=== PATIENT | male | born 1970 | race Hispanic/Latino ===

== ENCOUNTER 2017-11-02 19:47 | Emergency (ER) | payer OTHER ==
[2017-11-02 20:29] LABS: BASOPHILS % (AUTO) 0.6 % (0.0-5.0); EOSINOPHILS % (AUTO) 1.6 % (0.0-8.0); HEMATOCRIT 44.4 % (42-54); LYMPHOCYTES % (AUTO) 19.1 % (21.0-51.0); MEAN CORPUSCULAR HEMOGLOBIN 30.8 pg (27.0-33.0); MEAN CORPUSCULAR VOLUME 90.7 fL (79-99); MONOCYTES % (AUTO) 7.5 % (3.0-13.0); NEUTROPHILS % (AUTO) 71.2 % (40.0-77.0); PLATELET COUNT (AUTO) 309 K/uL (130-400); RED CELL DISTRIBUTION WIDTH 13.9 % (11.0-15.5); WHITE BLOOD COUNT (AUTO) 6.7 K/uL (4.8-10.8)
[2017-11-02 20:36] LABS: CREATININE 1.2 mg/dL (0.5-1.5); POTASSIUM 4.1 mmol/L (3.5-5.1)
[2017-11-02 20:50] LABS: ALBUMIN 3.9 g/dL (3.5-5.0); BILIRUBIN,TOTAL 0.3 mg/dL (0.2-1.0); CREATINE KINASE MB 0.7 ng/mL (0.5-3.6); THYROID STIMULATING HORMONE 4.05 uIU/mL (0.36-3.74); TOTAL PROTEIN, SERUM 7.9 g/dL (6.0-8.3)
[2017-11-02] MEDS ORDERED: LEVOTHYROXINE 25 MCG TABLET ONE (21:12)
[2017-11-02] MEDS ORDERED: KETOROLAC TROMETHAMINE 30MG/ML ONE (21:13)
== END 2017-11-02 21:42 | disposition home or self-care (01) ==
LOC: EDH 19:47
DX: G56.02 Carpal tunnel syndrome, left upper limb (principal); R20.2 Paresthesia of skin; E03.9 Hypothyroidism, unspecified
CPT/HCPCS: 36415; 71045; 73030; 80053; 82550; 82553; 84443; 85025; 93005; 96374; 99285; J1885

== ENCOUNTER → 2024-06-03 | Outpatient (CLI) | payer OTHER ==
--- NOTE | 2024-06-06 20:40 | HMCSR ---
APPROVED REPORT EXAM: Two-dimensional and M-mode echocardiogram with Doppler and color Doppler. INDICATION ICD: R07.9 Chest pain Hypertension 2D Dimensions RVDd5.2 cmLVEF(%)55.0 (>50%)LVED Vol(simp.)166.0 mL IVSd1.0 (0.7-1.1cm)FS(%)29 %LVES Vol(simp.)73.0 mL LVDd4.9 (3.8-5.6cm)Ao Root(2D)3.6 (2.0-3.7cm)LVEF(%, simp.)56 % PWd1.1 (0.7-1.1cm)LVOT diam2.2 (1.8-2.4cm)LA ESV INDEX (BP)45.92 mL/m2 LVDs3.5 (2.5-4.0cm)IVC diam1.6 cm PWs9.0 cm Aortic Valve AoV Vmax1.6 m/Danyel Peak GR10.1 mmHgLVOT Vmax1.1 m/s AoV VTI0.3 mAo Mean GR4.7 mmHgLVOT VTI0.25 m TANA (VMAX)3.0 cm2AVA (VTI) 3.0 cm2 Mitral Valve MV E Vmax77.0 cm/sDECEL Madf709 ms MV A Vmax54.9 cm/sP 1/2 T46 ms E/A ratio1.4MVA (PHT)4.8 cm2 MR Max PG78 mmHg TDI E/E' Medial9.9E/E' Lateral6.7 Pulmonary Valve PV Vmax1.1 m/sPV VTI0.26 mPV Mean GR3 mmHg PV Peak GR4.8 mmHg Tricuspid Valve TR Vmax2.6 m/sRAP (EST) 3 izPsRTCD11.0 mmHg TR Peak GR27.0 mmHg Left Ventricle The left ventricle structure and function is normal. There is normal LV segmental wall motion. There is normal left ventricular wall thickness. LVEF is 55-60%. 3D/4D LVEF is 57%. Left ventricular fillin g pattern is normal for age. Right Ventricle The right ventricle is severely dilated. The right ventricular systolic function is normal. Atria The left atrium is moderately dilated. The right atrium is severely dilated. Aortic Valve Aortic valve is trileaflet. Aortic valve leaflets are sclerotic but open well. No aortic regurgitatio n is present. There is no aortic valvular stenosis. Mitral Valve Mitral valve leaflets are mildly sclerotic but open well. Mitral regurgitation is trace. There is no mitral valve stenosis. Tricuspid Valve The tricuspid valve leaflets appear normal. There is trace to mild tricuspid regurgitation. Right abner tricular systolic pressure is estimated at 30 mmHg. Pulmonic Valve The pulmonic valve leaflets are thin and pliable; valve motion is normal. There is trace pulmonic roverto vular regurgitation. Great Vessels The aortic root is normal in size. The IVC is normal in size and collapses >50% with inspiration. Pericardium No pericardial effusion. Conclusion LVEF is 55-60%. 3D/4D LVEF is 57%. The left atrium is moderately dilated.
== END | disposition home or self-care (01) ==
LOC: SHCH 13:06
PROVIDERS: ATTEND Internal Medicine Cardiovascular Disease
DX: I08.3 Combined rheumatic disorders of mitral, aortic and tricuspid valves (principal); I11.9 Hypertensive heart disease without heart failure; R07.9 Chest pain, unspecified
CPT/HCPCS: 93306

== ENCOUNTER → 2024-07-07 | Outpatient (CLI) | payer SELFPAY ==
[2024-07-07 15:16] LABS: BASOPHILS # (AUTO) 0.04 K/uL (0.00-0.20); BASOPHILS % (AUTO) 0.6 % (0.0-5.0); EOSINOPHILS # (AUTO) 0.09 K/uL (0.00-0.70); EOSINOPHILS % (AUTO) 1.4 % (0.0-8.0); HEMATOCRIT 45.2 % (42-54); IMMATURE GRANULOCYTE ABSOLUTE 0.01 K/uL (0-1); LYMPHOCYTES # (AUTO) 1.3 K/uL (1.0-4.8); LYMPHOCYTES % (AUTO) 19.9 % (21.0-51.0); MEAN CORPUSCULAR HEMOGLOBIN 31.3 pg (27.0-33.0); MEAN CORPUSCULAR HGB CONC 33.2 g/dL (32.0-36.0); MEAN CORPUSCULAR VOLUME 94.4 fL (79-99); MONOCYTES # (AUTO) 0.7 K/uL (0.1-1.0); NEUTROPHILS # (AUTO) 4.4 K/uL (1.8-7.7); NEUTROPHILS % (AUTO) 67.9 % (40.0-77.0); PLATELET COUNT (AUTO) 300 K/uL (130-400); RED BLOOD CELL COUNT(AUTO) 4.79 MIL/uL (4.50-6.20); RED CELL DISTRIBUTION WIDTH 13.5 % (11.0-15.5); WHITE BLOOD COUNT (AUTO) 6.5 K/uL (4.8-10.8)
[2024-07-07 16:22] LABS: ALBUMIN 3.8 g/dL (3.5-5.0); BILIRUBIN,TOTAL 0.6 mg/dL (0.2-1.0); POTASSIUM 4.3 mmol/L (3.5-5.1); TOTAL PROTEIN, SERUM 7.5 g/dL (6.0-8.3)
== END | disposition home or self-care (01) ==
LOC: LAB 13:01
PROVIDERS: ATTEND Internal Medicine Cardiovascular Disease
DX: E78.5 Hyperlipidemia, unspecified (principal); R07.9 Chest pain, unspecified
CPT/HCPCS: 36415; 80053; 80061; 85025

== ENCOUNTER → 2024-12-07 | Outpatient (CLI) | payer OTHER ==
--- NOTE | 2024-12-07 11:57 | HMCIMG ---
KNEE 3VWS RT HISTORY: Right knee pain COMPARISON: None TECHNIQUE: 3 images of right knee were obtained. FINDINGS: There is no acute displaced fracture or dislocation. Degenerative changes are seen. IMPRESSION: 1. Findings as described above.
== END | disposition home or self-care (01) ==
LOC: RAH 08:36
PROVIDERS: ATTEND Family Medicine
DX: M17.11 Unilateral primary osteoarthritis, right knee (principal); M25.561 Pain in right knee
CPT/HCPCS: 73562